=== PATIENT | male | born 1950 | race Caucasian/White ===

== ENCOUNTER 2017-11-02 09:42 | Emergency (ER) | payer MEDICARE ==
[~2017-11-02] VITALS: Ht 182.9 cm; Wt 115.7 kg
[2017-11-02] MEDS ORDERED: LIPITOR 20 MG T20 M1 PO (09:49)
[2017-11-02] MEDS ORDERED: LISINOPRIL10 MG PO (09:49)
[2017-11-02] MEDS ORDERED: ASPIR 8181 MG PO (09:50)
[2017-11-02] MEDS ORDERED: LOPRESSOR50 PO (09:50)
[2017-11-02 11:00] LABS: ABSOLUTE BASOPHILS 0.1 thou/uL (0.0-0.2); ABSOLUTE EOSINOPHILS 0.1 thou/uL (0.0-0.7); ABSOLUTE LYMPHOCYTES 2.8 thou/uL (0.8-5.3); ABSOLUTE MONOCYTES 1.1 thou/uL (0.0-1.2); ABSOLUTE NEUTROPHILS 4.6 thou/uL (1.6-8.1); BASOPHILS 0.8 %; EOSINOPHILS 1.6 %; HEMATOCRIT 44.3 % (42.0-52.0); HEMOGLOBIN 15.9 gm/dL (14.0-18.0); LYMPHOCYTES 32.1 %; MCH 30.6 pg (26.0-34.0); MCV 85.1 fL (80.0-100.0); MONOCYTES 12.5 %; MPV 7.6 fl. (7.2-11.1); NUCLEATED RBCS 0 /100WBC; PLATELET COUNT* 192 thou/uL (150-400); RBC 5.21 mil/uL (4.50-6.00); RDW-CV 12.9 % (10.5-14.5); WBC 8.6 thou/uL (4.0-11.0)
[2017-11-02 11:08] LABS: CALCIUM 9.3 mg/dL (8.5-10.1); CREATININE 1.1 mg/dL (0.6-1.3); POTASSIUM 3.5 mmol/L (3.5-5.1)
[2017-11-02 11:13] LABS: ALBUMIN 3.7 g/dL (3.4-5.0); TOTAL BILIRUBIN 0.2 mg/dL (<0.1-1.0); TOTAL PROTEIN 7.3 g/dL (6.4-8.2)
[2017-11-02 11:26] LABS: INFLUENZA A ANTIGEN None Detected (None Detect); INFLUENZA B ANTIGEN None Detected (None Detect)
[2017-11-02] MEDS ORDERED: ZITHROMAX TRI-500 MG PO (11:46)
[2017-11-02] MEDS ORDERED: NEBULIZER MISCELL (11:46)
[2017-11-02] MEDS ORDERED: DUONEB 2.5-0.5 M3 ML INH (11:46)
[2017-11-02] MEDS ORDERED: MEDROLDOSEPACK PO (11:46)
[2017-11-02 11:52] VITALS: BP 167/79
== END 2017-11-02 11:54 | disposition home or self-care (01) ==
LOC: M.ERS 09:42
PROVIDERS: Personal Emergency Response Attendant
DX: J40 Bronchitis, not specified as acute or chronic (principal); R06.2 Wheezing; I10 Essential (primary) hypertension; E78.00 Pure hypercholesterolemia, unspecified; Z86.73 Personal history of transient ischemic attack (TIA), and cerebral infarction without residual deficits

== ENCOUNTER → 2019-05-20 | Outpatient (CLI) | payer MEDICARE ==
[~2019-05-20] MED LIST: ASPIR 8181 MG PO; DUONEB 2.5-0.5 M3 ML INH; LIPITOR 20 MG T20 M1 PO; LISINOPRIL10 MG PO; LOPRESSOR50 PO; MEDROLDOSEPACK PO; NEBULIZER MISCELL; ZITHROMAX TRI-500 MG PO
== END ==
LOC: M.CRD 11:00
DX: R07.9 Chest pain, unspecified (principal); R06.00 Dyspnea, unspecified

== ENCOUNTER → 2019-11-17 | Outpatient (CLI) | payer MEDICARE ==
[2019-11-17 09:12] LABS: ABSOLUTE BASOPHILS 0.1 thou/uL (0.0-0.2); ABSOLUTE EOSINOPHILS 0.3 thou/uL (0.0-0.7); ABSOLUTE LYMPHOCYTES 1.9 thou/uL (0.8-5.3); ABSOLUTE MONOCYTES 0.9 thou/uL (0.0-1.2); ABSOLUTE NEUTROPHILS 2.7 thou/uL (1.6-8.1); BASOPHILS 2.1 %; EOSINOPHILS 5.6 %; HEMATOCRIT 44.5 % (42.0-52.0); HEMOGLOBIN 15.7 gm/dL (14.0-18.0); LYMPHOCYTES 31.9 %; MCH 31.6 pg (26.0-34.0); MCHC 35.2 g/dL (28.0-37.0); MCV 89.7 fL (80.0-100.0); MPV 7.1 fl. (7.2-11.1); NUCLEATED RBCS 0 /100WBC; PLATELET COUNT* 257 thou/uL (150-400); POLYS 45.4 %; RBC 4.96 mil/uL (4.50-6.00); RDW-CV 13.1 % (10.5-14.5)
[2019-11-17 09:47] LABS: ALKALINE PHOSPHATASE 79 U/L (46-116); ANION GAP 7 mmol/L (7-16); BUN 11 mg/dL (7-18); CALCIUM 9.1 mg/dL (8.5-10.1); CHLORIDE 93 mmol/L (98-107); CHOLESTEROL 198 mg/dL (<200); CO2 29 mmol/L (21-32); CREATININE 1.1 mg/dL (0.6-1.3); GLUCOSE 91 mg/dL (70-99); HDL CHOLESTEROL 43 mg/dL (>40); LDL CHOLESTEROL 135 mg/dL (<100); MAGNESIUM 1.8 mg/dL (1.8-2.4); POTASSIUM 5.2 mmol/L (3.5-5.1); SGOT 19 U/L (15-37); SGPT 22 U/L (30-65); SODIUM 129 mmol/L (136-145); TC:HDL 4.6 Ratio (Not establshd); TOTAL BILIRUBIN 0.4 mg/dL (<0.1-1.0); TOTAL PROTEIN 7.5 g/dL (6.4-8.2); TRIGLYCERIDE 101 mg/dL (<150); VLDL 20 mg/dL (<40)
[2019-11-17 09:52] LABS: SERUM ASSESSMENT Clear
[2019-11-17 23:06] LABS: GLYCOHEMOGLOBIN (HGB A1C) 5.5 % (4.8-5.6)
== END ==
LOC: M.LAB 08:34
PROVIDERS: Nurse Practitioner
DX: Z13.1 Encounter for screening for diabetes mellitus (principal); Z13.220 Encounter for screening for lipoid disorders; I10 Essential (primary) hypertension; Z79.899 Other long term (current) drug therapy

== ENCOUNTER → 2019-12-11 | Outpatient (CLI) | payer MEDICARE ==
[2019-12-11 09:34] LABS: CALCIUM 9.1 mg/dL (8.5-10.1); CREATININE 1.2 mg/dL (0.6-1.3)
== END ==
LOC: M.LAB 09:10
PROVIDERS: Nurse Practitioner
DX: I10 Essential (primary) hypertension (principal)

== ENCOUNTER → 2020-07-29 | Outpatient (CLI) | payer MEDICARE ==
[2020-07-29] VITALS (13 sets, daily range): BP systolic 96–136; BP diastolic 60–77
[~2020-07-29] VITALS: Ht 175.3 cm; Wt 98.9 kg
[~2020-07-29] MED LIST changes: +HYDROCHLOROTHIA25 M2 PO; +NITROSTAT0.4 M1 SUBLING; +OMEPRAZOLE 20 M20 M1 PO; +PROAIR HFA8.5 GM INH; +VERAPAMIL ER180 M1 PO
--- NOTE | ~2020-07-29 | EKG ---
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
[2020-07-29 10:21] LABS: ANION GAP 8 mmol/L (7-16); BUN 14 mg/dL (7-18); CALCIUM 9.2 mg/dL (8.5-10.1); CHLORIDE 94 mmol/L (98-107); CO2 29 mmol/L (21-32); CREATININE 1.2 mg/dL (0.6-1.3); GLUCOSE 83 mg/dL (70-99); POTASSIUM 4.3 mmol/L (3.5-5.1); SODIUM 131 mmol/L (136-145)
[2020-07-29 10:25] LABS: ALBUMIN 4.1 g/dL (3.4-5.0); ALKALINE PHOSPHATASE 66 U/L (46-116); CHOLESTEROL 212 mg/dL (<200); HDL CHOLESTEROL 40 mg/dL (>40); LDL CHOLESTEROL 153 mg/dL (<100); SGOT 18 U/L (15-37); SGPT 22 U/L (30-65); TC:HDL 5.3 Ratio (Not establshd); TOTAL BILIRUBIN 0.4 mg/dL (<0.1-1.0); TOTAL PROTEIN 7.9 g/dL (6.4-8.2); TRIGLYCERIDE 95 mg/dL (<150); VLDL 19 mg/dL (<40)
[2020-07-29 10:33] LABS: SERUM ASSESSMENT Clear
[2020-07-29 10:42] LABS: HEMATOCRIT 46.6 % (42.0-52.0); MCH 31.1 pg (26.0-34.0); MCHC 34.4 g/dL (28.0-37.0); MCV 90.5 fL (80.0-100.0); MPV 7.4 fl. (7.2-11.1); RBC 5.15 mil/uL (4.50-6.00); RDW-CV 12.8 % (10.5-14.5)
[2020-07-29 10:45] LABS: APTT 29.4 Seconds (25.0-31.3); PROTIME 10.7 Seconds (9.20-11.50)
--- NOTE | 2020-07-29 11:35 | NUR ---
KEITH'S TEST SHOWED NO RETURN ON O2 SATURATION READING WITH RADIAL ARTERY OCCLUDED AND ULNAR ARTERY PATENT. RETEST PERFORMED AFTER ADJUSTMENT OF O2 SAT PROBE FOR VERIFICATION WITH NO CHANGE IN FINDINGS. DR ZAVALA NOTIFIED.
[2020-07-29 14:35] LABS: HEMATOCRIT 44.7 % (42.0-52.0); HEMOGLOBIN 15.5 gm/dL (14.0-18.0); MCH 31.2 pg (26.0-34.0); MCHC 34.7 g/dL (28.0-37.0); MCV 89.9 fL (80.0-100.0); RBC 4.97 mil/uL (4.50-6.00); RDW-CV 12.9 % (10.5-14.5)
[2020-07-29 14:55] LABS: ANION GAP 8 mmol/L (7-16); BUN 14 mg/dL (7-18); CALCIUM 9.7 mg/dL (8.5-10.1); CHLORIDE 96 mmol/L (98-107); CO2 25 mmol/L (21-32); GLUCOSE 93 mg/dL (70-99); SODIUM 129 mmol/L (136-145); TROPONIN-I LEVEL <0.06 ng/mL (<0.06)
--- NOTE | 2020-07-29 16:25 | EKG ---
[place] [address] ELECTROCARDIOGRAM REPORT Name: BRE QUEENRY Room: [address] M.R.#: [id number] Admission: 07/29/20 Attend Phys: Robbie Young MD Discharge: Date of : 50 Date of Service: 07/29/20 1524 Report #: [id number] THIS REPORT FOR: //name// [facility] Test Date: 2020-07-29 Test Time: 15:24:48 Pat Name: BRE QUEEN Department: Room: [place] [address] Gender: M Sample Body Builder: : 1950 Requested By: Robbie Young Order Number: [id number] Sammy MD: Robbie Young Measurements Intervals Tutor Key Rate: 63 P: 46 NM: 177 QRS: -16 QRSD: 103 T: 62 QT: 408 QTc: 418 Interpretive Statements Sinus rhythm Ventricular premature complex Borderline left axis deviation Low voltage, extremity and precordial leads No previous ECG available for comparison Electronically Signed On 07-29-2020 16:24:53 CDT by Robbie Young [email or web address] <ELECTRONICALLY SIGNED> By: Robbie Young MD, [facility] 07/29/20 1624 1524 1524 Robbie Young MD, [facility] /EPI
--- NOTE | 2020-07-29 16:50 | CARD ---
[address] [address] CARDIAC CATH REPORT Name: QUEEN,THOMAS WALTER Room: [address] Tony Renee#: [id number] Admission: 07/29/20 Attend Phys: oRbbie Young MD, F Discharge: Date of : 50 Report #: [id number] THIS REPORT FOR: //name// cc: Bishnu Carney John E. DO ~ APPROVED REPORT Study performed: 07/29/2020 10:57:51 Patient Details Patient Status: Out-Patient Room #: The patient is a 70 year-old male Event Personnel Pal Costa RTR Monitor, Haroon Torre RN RN, Cristel Lee RTR Scrub, Robbie Young Hog Scalder Procedures Performed Right Radial Artery access, Left Heart Cath w/or w/o Coronaries , LHC SB Place w/wo Plasty Single LAD, Hemostasis with Vasc Band Indication Unstable angina , Chest pain Risk Factors Hypercholesterolemia, Hypertension, Tobacco History () Admission/Lab Medications/Medications given during procedure Glycoprotein IllbIlla Inhibitors, Heparin Unfract., Midazolam (Versed) IV 2 mg, Lidocaine Subcut 4 ml, Nitroglycerin IA 400 mcg, Verapamil IA 5 mg, Heparin IV 5000 units, Aggrastat IV bolus 10 ml, Nitroglycerin IC 200 mcg, Effient PO 60 mg Procedure Narrative The patient was brought electively to the Cardiac Catheterization Laboratory and was prepped and draped in a sterile manner. The right wrist was infiltrated with 2% Lidocaine subcutaneous anesthesia. A 6F Slender Providence sheath was inserted into the right radial artery. Coronary angiography was performed using coronary diagnostic catheters. The right coronary system was accessed and visualized with a 6Fr JR4 catheter. The left coronary system was accessed and visualized with a 6Fr JL4 catheter. The left ventricle was accessed and visualized with a 6Fr [place] [address] CARDIAC CATH REPORT Name: BRE QUEEN Room: [address] M.R.#: [id number] Admission: 07/29/20 Attend Phys: Robbie Young MD, F Discharge: Date of : 50 Report #: [id number] ventricular/Aortic Valve gradient assessed via catheter pullback. Left ventriculogram was performed in BRISENO projection. Closure device was deployed with a 6 Fr Vasc Band 24 cm. The patient tolerated the procedure well and there were no complications associated with the procedure. There was no hematoma. Intraoperative Conscious Sedation Sedation start time: 11:44 Case end Time: 12:29 Versed 2 mg Fluoro Time: 7.9 minutes Dose: DAP 245923 cGycm2 1961.05 mGy Contrast Type and Amount: Visipaque 290 ml Coronary Angiography The patient's coronary anatomy is right dominant. Diagnostic Cath Left Main 0% stenosis LAD 99% stenosis of the mid LAD after the first diagonal branch, with ERIKA grade II antegrade flow and competitive flow from collaterals from the RCA Circumflex small nondominant vessel with 0% stenosis Right Coronary 30% proximal and 50% mid stenosis RPLV 50% mid stenosis Ramus large vessel with 60% distal stenosis Left Ventriculography The left ventricular ejection fraction is estimated to be 60-65%. Left ventricular wall motion abnormalities are not present. There is no mitral insufficiency. Hemodynamics The aortic pressure is 94/54 mmHg with a mean of 71 mmHg. The left ventricular pressure is 132/10 mmHg with a mean of mmHg. The left ventricular end diastolic pressure is 16 mmHg. There was no gradient across the aortic valve upon pullback. Pullback from the left ventricle to the aorta revealed no gradient across the aortic valve. PCI Technique Lesion Anticoagulation was achieved with Heparin IV bolus 5000 units. bolus of IV aggrastat given Percutaneous coronary intervention was performed on the mid left anterior descending artery segment. The lesion stenosis prior to intervention was 99% with ERIKA 2 flow. A [address] [place] [address] CARDIAC CATH REPORT Name: BRE QUEEN Room: [address] M.R.#: [id number] Admission: 07/29/20 Attend Phys: Robbie Young MD, F Discharge: Date of : 50 Report #: [id number] XB LAD 3.5 Guide Catheter was used to engage the Left main ostium. A BMW 190cm Interventional Guidewire was used to cross the lesion. BALLOON DILATION A Balloon catheter Euphora SC 2.5x10 was inserted and inflated up to 10.00atm for 12seconds. Repeat angiography revealed the following post-dilatation results: 40% stenosis. Additional Inflation: 12.00atm for 10seconds. Additional Inflation: 13.00atm for 9seconds. STENT DEPLOYMENT A drug-eluting stent Jem RX Stent 2.17M37mw was inserted and inflated up to 12.00atm for 16seconds. Repeat angiography revealed the following post-stent deployment results: 0% stenosis. Additional Inflation: 15.00atm for 20seconds. Final angiography reveals 0 % stenosis with ERIKA 3 flow. Conclusion 1. 99% stenosis noted of the mid LAD with slow antegrade flow 2. LVEF 60-65% 3. successful placement of a single drug eluting stent in the mid LAD Recommendations Cardiac Rehabilitation Referral Aggressive Medical Therapy Medications Administered Prasugrel <ELECTRONICALLY SIGNED> By: Robbie Young MD, [facility] 07/29/201648 48 48Robbie Young MD, FACC /INF
== END ==
LOC: M.CL 09:06 → M.TBA-CV 12:04
PROVIDERS: ATTEND Internal Medicine Cardiovascular Disease
DX: I20.0 Unstable angina (principal); I10 Essential (primary) hypertension; E78.00 Pure hypercholesterolemia, unspecified; K21.9 Gastro-esophageal reflux disease without esophagitis; I73.9 Peripheral vascular disease, unspecified; Z86.73 Personal history of transient ischemic attack (TIA), and cerebral infarction without residual deficits; Z87.891 Personal history of nicotine dependence; Z79.899 Other long term (current) drug therapy; Z20.828 Contact with and (suspected) exposure to other viral communicable diseases; Z98.890 Other specified postprocedural states